=== PATIENT | female | born 1965 | race Caucasian/White ===

== ENCOUNTER 2018-10-23 17:33 | Emergency (ER) | payer BC ==
[~2018-10-23] VITALS: Ht 160 cm; Wt 56.7 kg
[~2018-10-23 17:33] MED LIST: ESTR1TAB12 PO; PANT40TA2 PO
--- NOTE | 2018-10-23 17:46 | NUR ---
c/o headache, nausea and vomiting x 2 days. STATES N/V IS DUE TO HAVING HEADACHE. DENIES HX OF MIGRAINES. PAIN MEDS NOT HELPING. DENIES DIZZINESS, BLURRED VISION. FAMILY AT BEDSIDE. MADE COMFORTABLE AND READY FOR EVAL.
[2018-10-23] MEDS ORDERED: diphenhydrAMINE HCL 50 MG/ML VIAL ONE (17:57)
[2018-10-23] MEDS ORDERED: METOCLOPRAMIDE HCL 10 MG/2 ML VIAL ONE (17:57)
[2018-10-23] MEDS ORDERED: diphenhydrAMINE HCL 50 MG/ML VIAL IV ONE (18:00)
[2018-10-23] MEDS ORDERED: IV NS 0.9% 1,000 ML BAG IV ONE (18:00)
[2018-10-23] MEDS ORDERED: METOCLOPRAMIDE HCL 10 MG/2 ML VIAL IV ONE (18:00)
--- NOTE | 2018-10-23 18:17 | NUR ---
PT REFUSING XRAY AND MEDS. NOTIFIED
--- NOTE | 2018-10-23 18:27 | NUR ---
LAB AT BEDSIDE FOR BLOOD DRAW
[2018-10-23 18:34] LABS: BASOPHILS % (AUTO) 0.2 % (0.0-2.0); EOSINOPHILS % (AUTO) 1.2 % (0.0-6.0); HEMATOCRIT 43 % (33-45); HEMOGLOBIN 13.9 g/dL (11.5-14.8); LYMPHOCYTES # (AUTO) 2.4 /CMM (0.8-4.8); LYMPHOCYTES % (AUTO) 18.4 % (20.0-44.0); MEAN CORPUSCULAR HGB CONC 33 g/dl (31.0-36.0); MEAN CORPUSCULAR VOLUME 88 fL (82-100); MONOCYTES # (AUTO) 1.2 /CMM (0.1-1.30); MONOCYTES % (AUTO) 9.2 % (2.0-12.0); NEUTROPHILS # (AUTO) 9.3 /CMM (1.8-8.9); PLATELET COUNT (AUTO) 339 /CMM (150-450); RED BLOOD CELL COUNT(AUTO) 4.84 MIL/uL (4.0-5.2); WHITE BLOOD COUNT (AUTO) 13.1 K/uL (4.3-11.0)
[2018-10-23 18:43] LABS: CALCIUM, SERUM 9.4 mg/dL (8.5-10.1); CARBON DIOXIDE 31 mmol/L (21-32); CHLORIDE 101 mmol/L (98-107); CREATININE 0.8 mg/dL (0.6-1.3); GLUCOSE 98 mg/dL (74-106); POTASSIUM 4.3 mmol/L (3.5-5.1); SODIUM SERUM 142 mmol/L (136-145); UREA NITROGEN, BLOOD 18 mg/dL (7-18)
--- NOTE | 2018-10-23 18:45 | NUR ---
PT SIGNED WAIVER
[2018-10-23 18:49] LABS: ALANINE AMINOTRANSFERASE 29 U/L (12-78); ALKALINE PHOSPHATASE 52 U/L (46-116); ASPARTATE AMINOTRANSFERASE 24 U/L (15-37); BILIRUBIN,DIRECT 0.1 mg/dL (0.0-0.2); BILIRUBIN,TOTAL 0.5 mg/dL (0.2-1.0); LIPASE 137 U/L (73-393); TOTAL PROTEIN, SERUM 7.6 g/dL (6.4-8.2)
--- NOTE | 2018-10-23 18:55 | NUR ---
PT TAKEN TO CT VIA LEONELA
[2018-10-23] MEDS ORDERED: KETOROLAC TROMETHAMINE 15 MG/ML VIAL ONE (19:31)
[2018-10-23] MEDS ORDERED: VALPROATE 500 MG in IV D5W 100 ML IV STA (19:57)
--- NOTE | 2018-10-23 19:58 | NUR ---
PT STILL HAVING PAIN 02/02. MD AWARE
[2018-10-23] MEDS ORDERED: KETOROLAC TROMETHAMINE INJ 30 MG/ML VIAL IV ONE (20:00)
[2018-10-23] MEDS ORDERED: DEXAMETHASONE SOD PHOSPHATE 10 MG/ML VIAL IV ONE (20:00)
[2018-10-23] MEDS ORDERED: CT SWABBABLE VALVE TRANS SET 1 EA INFUS.SET MC ONE (20:13)
[2018-10-23] MEDS ORDERED: IOHEXOL-350 100 ML VIAL IV ONE (20:13)
[2018-10-23] MEDS ORDERED: IV NS 0.9% 250 ML IV ONE (20:14)
[2018-10-23] MEDS ORDERED: DEXAMETHASONE SOD PHOSPHATE 10 MG/ML VIAL ONE (20:17)
[2018-10-23] MEDS ORDERED: VALPROATE 500 MG/5 ML VIAL IV ONE (20:22)
[2018-10-23 21:19] LABS: APPEARANCE,URINE CLEAR (CLEAR); BILIRUBIN,URINE NEGATIVE (NEGATIVE); BLOOD, URINE NEGATIVE Ery/uL (NEGATIVE); COLOR,URINE YELLOW (YELLOW); KETONES,URINE 1+ (NEGATIVE); LEUKOCYTE ESTERASE ,URINE NEGATIVE (NEGATIVE); NITRITE, URINE NEGATIVE (NEGATIVE); PH,URINE 6.5 (5.0-8.0); PROTEIN,URINE NEGATIVE (NEGATIVE); UGLUCOSE NEGATIVE (NEGATIVE); UROBILINOGEN,URINE 0.2 EU/dL (0.2)
[2018-10-23 21:33] LABS: BACTERIA,URINE None seen /HPF (None Seen); RBC,URINE 0-2 /HPF (0-2); WBC,URINE 0-2 /HPF (0-3)
--- NOTE | 2018-10-23 21:33 | NUR ---
IV removed. Catheter intact and site benign. Pressure and 4x4 applied to site. No bleeding noted.Patient discharged to home in stable condition. Written and verbal after care instructions given. Patient verbalizes understanding of instruction.
[2018-10-23 21:36] VITALS: BP 131/97
== END 2018-10-23 21:37 | disposition home or self-care (01) ==
LOC: ER 17:35
DX: R51 Headache (principal); R11.2 Nausea with vomiting, unspecified; D72.829 Elevated white blood cell count, unspecified
CPT/HCPCS: 36415; 70450; 70496; 80048; 80076; 80305; 81001; 83690; 84484; 85025; 96361; 96374; 96375; 99284; J1100; J1885; J2765; J3490; J7030; J7050; J7060 ×2; Q9967; 81000-TC; J1200

== ENCOUNTER 2021-10-22 15:01 | Emergency (ER) | payer BC ==
[~2021-10-22] VITALS: Ht 160 cm; Wt 57.2 kg
[2021-10-22 16:06] VITALS: BP 114/70
--- NOTE | 2021-10-22 16:50 | NUR ---
FLU SWAB DONE AND SENT TO THE LAB.
== END 2021-10-22 17:15 | disposition home or self-care (01) ==
LOC: ER 15:15
DX: B34.9 Viral infection, unspecified (principal); Z20.822 Contact with and (suspected) exposure to COVID-19
CPT/HCPCS: 87426; 87804; 99283; C9803